=== PATIENT | female | born 1950 | race Two or more races ===

== ENCOUNTER 2017-04-22 12:03 | Emergency (ER) | payer OTHER ==
[2017-04-22 12:13] VITALS: BP 155/75; BMI 29.9
--- NOTE | 2017-04-22 12:48 | ED.ABDFE ---
HPI - Time seen Time seen: 12:35 - PCP Primary Care Physician: LALITA RADER - HPI Comment HPI Comment: PAIN TIMES 3 DAYS. WORSE TONIGHT. REMOTE HISTORY OF TRAUMA. NO FEVER OR DYSURIA - Complaint Chief Complaint Doctors Comments: RIGHT FLANK PAIN. Chief Complaint:: PT C/O HURTING IN HER RIGHT FLANKS THAT STARTED 3 DAYS AGO.. PT FELL AWHILE AGO AND SHE DENIES ANY NEW INJURIES .. - Nurses notes reviewed Nurses Notes Review: Yes - Source History Provided: Patient - Mode of arrival Mode of Arrival: Ambulatory - Timing Onset of Chief Complaint: 04/20/17 Came on: Suddenly - Duration Duration: Days - Severity Severity: Moderate - Quality Quality: Sharp - Modifying Worsening Factors: Nothing Improving Factors: Nothing - Associated signs and symptoms Associated Signs and Symptoms: Nausea PMH - PMH Past Medical History: Yes Past Medical History: Diabetes, Hypertension, Hypothyroidism Past Surgical History: Yes Surgical History: Hysterectomy - Family History History of Family Medical Conditions: Yes Family Medical History: Diabetes Mellitus, Hypertension - Social History Does patient currently use any type of tobacco product: No Have you used tobacco products in the last 12 months: No Type of Tobacco Use: None Does any household member use tobacco: No Alcohol Use: None Do you use any recreational Drugs:: No Lives With: Family Lives Where: Home - infectious screening In the last 2 months have you had wt loss of >10#?: NO Have you had fever, night sweats or hemotysis?: No Have you traveled outside the country in the last 6 months?: No Isolation: Standard ROS - Review of Systems Constitutional: No Symptoms Reported, Weakness. negative: Chills, Fever, Fatigue Eyes: No Symptoms Reported. negative: Eye Pain, Discharge ENTM: No Symptoms Reported. negative: Ear Pain, Nose Discharge, Nose Congestion , Throat Pain Respiratoy: Non-Productive Cough, Short of Breath. negative: Wheezing, Hemoptysis Cardiovascular: No Symptoms Reported Gastrointestinal/Abdominal: Nausea Genitourinary: No Symptoms Reported Neurological: No Symptoms Reported Musculoskeletal: Other (RT FLANK PAIN) Integumentary: No Symptoms Reported Hematologic/Lymphatic: No Symptoms Reported Endocrine: No Symptoms Reported All Other Systems: Reviewed and Negative PE - Vital Signs Vitals: Temperature 98.7 F Pulse Rate 106 Respiratory Rate 18 Blood Pressure 155/75 O2 Sat by Pulse Oximetry 94 - General Limitations: No Limitations General Appearance: Alert - Head Head Exam: Normal Inspection - Eyes Eye exam: Normal Appearance - ENT ENT Exam: Normal External Ear Exam - Neck Neck Exam: Normal Inspection - Chest Chest Inspection: Symmetric Chest Wall Rise - Respiratory Respiratory Exam: Normal Lung Sounds Bilat Respiratory Exam: Bilateral Clear to Auscultation - Cardiovascular Cardiovascular Exam: Regular Rate, Normal Rhythm, Normal Heart Sounds - Abdominal Exam Abdominal Exam: Normal Bowel Sounds, Soft. negative: Tenderness - Rectal Rectal Exam: Deferred - Back Back Exam: (R) CVA Tenderness - Extremeties Extremities Exam: Normal Inspection - External Exam: Female: Deferred : Speculum Exam (Female): Deferred : Bimanual Exam (female): Deferred - Neurologic Neurological Exam: Alert, Oriented X3 - Psychiatric Psychiatric Exam: Normal Affect, Normal Mood - Skin Skin Exam: Normal Color MDM - Differential Diagnosis Differential Diagnosis- Considerations may include:: Angina/OR, Bowel Obstruction, Cholcystitis, Cholelethiasis, Gastritus/PUD, Urinary tract infection, Urolithiasis Course - Treatment Treatment: SEE ORDERS - Education/Counseling Education/Counseling: Patient, Education Educated On: Treatment, Diagnosis, Needs for Follow Up ROR - Labs Reviewed Laboratory Results Reviewed?: Yes Result Diagrams: 04/22/17 12:48 04/22/17 12:48 Laboratory: 04/22/17 13:26 Urine,Clean Catch Urine Culture - Final Klebsiella Pneumoniae WBC 7.0 X10^3/uL (3.6-10.0) 04/22/17 12:48 RBC 4.45 X10^6/uL (3.5-5.4) 04/22/17 12:48 Hgb 12.4 g/dL (12.0-16.0) 04/22/17 12:48 Hct 35.6 % (36.0-47.0) L 04/22/17 12:48 MCV 80.0 fL (80.0-100.0) 04/22/17 12:48 MCH 27.7 pg (27.0-34.0) 04/22/17 12:48 MCHC 34.7 g/dL (33.0-35.0) 04/22/17 12:48 RDW 12.9 % (11.6-16.5) 04/22/17 12:48 Plt Count 315 X10^3/uL (150.0-450.0) 04/22/17 12:48 MPV 7.5 fL (7.4-11.0) 04/22/17 12:48 Neut % 74.0 % (42.0-75.0) 04/22/17 12:48 Lymph % 14.7 % (21.0-51.0) L 04/22/17 12:48 Custer % 9.2 % (0.0-13.0) 04/22/17 12:48 Eos % 1.1 % (0.9-2.9) 04/22/17 12:48 Baso % 1.0 % (0.2-1.0) 04/22/17 12:48 Neut # 5.2 x10^3/uL (2.2-4.8) H 04/22/17 12:48 Lymph # 1.0 X10^3/uL (1.3-2.9) L 04/22/17 12:48 Custer # 0.6 x10^3/uL (0.3-0.8) 04/22/17 12:48 Eos # 0.1 x10^3/uL (0.0-0.2) 04/22/17 12:48 Baso # 0.1 X10^3/uL (0.0-0.1) 04/22/17 12:48 Absolute Nucleated RBC 0.1 /100WBC 04/22/17 12:48 Sodium 138 mmol/L (136-145) 04/22/17 12:48 Corrected Sodium 143 mmol/L (136-145) 04/22/17 12:48 Potassium 4.1 mmol/L (3.5-5.1) 04/22/17 12:48 Chloride 102 mmol/L (98-107) 04/22/17 12:48 Carbon Dioxide 29.9 mmol/L (21-32) 04/22/17 12:48 BUN 26 mg/dL (7-18) H 04/22/17 12:48 Creatinine 1.25 mg/dL (0.55-1.02) H 04/22/17 12:48 Est GFR (MDRD) Af Amer 55 (>60) L 04/22/17 12:48 Est GFR (MDRD) Non-Af 46 (>60) L 04/22/17 12:48 Glucose 313 mg/dL (65-99) H 04/22/17 12:48 Calcium 10.2 mg/dL (8.5-10.1) H 04/22/17 12:48 Corrected Calcium 10.8 mg/dL (8.5-10.1) H 04/22/17 12:48 Total Bilirubin 0.50 mg/dL (0.2-1.0) 04/22/17 12:48 AST 28 Units/L (15-37) 04/22/17 12:48 ALT 67 Units/L (12-78) 04/22/17 12:48 Alkaline Phosphatase 268 Units/L (46-116) H 04/22/17 12:48 Creatine Kinase 19 Units/L (26-192) L 04/22/17 12:48 CK-MB (CK-2) < 1.0 ng/mL (0-4.0) 04/22/17 12:48 CK/CKMB % Calc 5.3 % (<4) 04/22/17 12:48 Troponin I < 0.02 ng/mL (0-1.5) 04/22/17 12:48 B-Natriuretic Peptide 60.8 pg/mL (0-79) 04/22/17 12:48 Total Protein 8.1 g/dL (6.4-8.2) 04/22/17 12:48 Albumin 3.2 g/dL (3.4-5.0) L 04/22/17 12:48 Globulin 4.9 g/dL (2.5-4.5) H 04/22/17 12:48 Albumin/Globulin Ratio 0.7 Ratio (1.1-2.1) L 04/22/17 12:48 Amylase 46 Units/L (25-115) 04/22/17 12:48 Lipase 224 Units/L (73-393) 04/22/17 12:48 Specimen Type Clean catch urine 04/22/17 13:26 Urine Color Yellow (YELLOW) 04/22/17 13:26 Urine Appearance Cloudy (CLEAR) 04/22/17 13:26 Urine pH 5.0 (5.0 - 8.0) 04/22/17 13:26 Ur Specific Clyman 1.015 (1.000-1.030) 04/22/17 13:26 Urine Protein 3+ (NEGATIVE) 04/22/17 13:26 Urine Glucose (UA) 3+ (NEGATIVE) 04/22/17 13:26 Urine Ketones Negative (NEGATIVE) 04/22/17 13:26 Urine Occult Blood 5+ (NEGATIVE) 04/22/17 13:26 Urine Nitrite Positive (NEGATIVE) 04/22/17 13:26 Urine Bilirubin Negative (NEGATIVE) 04/22/17 13:26 Urine Urobilinogen 1+ (NORMAL) 04/22/17 13:26 Ur Leukocyte Esterase 3+ (NEGATIVE) 04/22/17 13:26 Urine RBC Tntc /HPF (NEGATIVE) 04/22/17 13:26 Urine WBC 35 - 50 /HPF (NEGATIVE) 04/22/17 13:26 Ur Squamous Epith Cells Few /HPF (NEGATIVE) 04/22/17 13:26 Ur Renal Epithelial Cell Rare /HPF (NEGATIVE) 04/22/17 13:26 Amorphous Sediment 1+ /HPF (NEGATIVE) 04/22/17 13:26 Urine Bacteria 3+ /HPF (NEGATIVE) 04/22/17 13:26 Hyaline Casts Rare /LPF (NEGATIVE) 04/22/17 13:26 Urine Mucus Moderate /HPF (NEGATIVE) 04/22/17 13:26 Ur Culture Indicated? Yes/culture set up 04/22/17 13:26 - XRAY XRAY Interpreted by: Radiologist XRAY Findings: REPORT DISCUSS WITH PATIENT. - EKG Rhythm: NSR (EKG NOTED) - Diagnosis Discharge Problem: Rt flank pain, Pyelonephritis Abdominal pain Qualifiers: Abdominal location: right lower quadrant Qualified Code(s): R10.31 - Right lower quadrant pain - Discharge Plan Disposition: 01 HOME, SELF-CARE Condition: Stable Prescriptions: Acetaminophen with Codeine [Tylenol/Codeine #3 300-30 mg] 1 tab PO Q8H PRN #15 tab PRN Reason: Pain Ketorolac Tromethamine [Toradol Tab] 10 mg PO Q8H PRN #12 tab PRN Reason: Pain Levofloxacin [LEVAQUIN TAB 500 MG *] 500 mg PO DAILY #7 tab - Follow ups/Referrals Follow ups/Referrals: [facility],None [Primary Care Provider] - 3 days - Instructions Instructions: Pyelonephritis, Adult, Orso-se-Fudp, Abdominal Pain, Adult, Easy- to-Read Additional Instructions: RETURN TO ED IF WORSE.
[2017-04-22 12:51] LABS: BASOPHILS # (AUTO) 0.1 X10^3/uL (0.0-0.1); EOSINOPHILS # (AUTO) 0.1 x10^3/uL (0.0-0.2); EOSINOPHILS % (AUTO) 1.1 % (0.9-2.9); HEMATOCRIT 35.6 % (36.0-47.0); HEMOGLOBIN 12.4 g/dL (12.0-16.0); LYMPHOCYTES % (AUTO) 14.7 % (21.0-51.0); MEAN CORPUSCULAR HEMOGLOBIN 27.7 pg (27.0-34.0); MEAN CORPUSCULAR HGB CONC 34.7 g/dL (33.0-35.0); MEAN PLATELET VOLUME 7.5 fL (7.4-11.0); MONOCYTES # (AUTO) 0.6 x10^3/uL (0.3-0.8); MONOCYTES % (AUTO) 9.2 % (0.0-13.0); NEUTROPHILS # (AUTO) 5.2 x10^3/uL (2.2-4.8); PLATELET COUNT 315 X10^3/uL (150.0-450.0); RED BLOOD COUNT 4.45 X10^6/uL (3.5-5.4); RED CELL DISTRIBUTION WIDTH 12.9 % (11.6-16.5)
[2017-04-22 13:16] LABS: B-TYPE NATRIURETIC PEPTIDE 60.8 pg/mL (0-79)
[2017-04-22 13:18] LABS: ALANINE AMINOTRANSFERASE 67 Units/L (12-78); ALBUMIN 3.2 g/dL (3.4-5.0); ALKALINE PHOSPHATASE 268 Units/L (46-116); AMYLASE 46 Units/L (25-115); ASPARTATE AMINO TRANSFERASE 28 Units/L (15-37); BLOOD UREA NITROGEN 26 mg/dL (7-18); CALCIUM 10.2 mg/dL (8.5-10.1); CARBON DIOXIDE 29.9 mmol/L (21-32); CHLORIDE 102 mmol/L (98-107); COR CA(FOR HYPOALB) 10.8 mg/dL (8.5-10.1); COR NA(FOR HYPERGLY) 143 mmol/L (136-145); CREATINE KINASE 19 Units/L (26-192); CREATINE KINASE MB < 1.0 ng/mL (0-4.0); CREATININE 1.25 mg/dL (0.55-1.02); LIPASE 224 Units/L (73-393); SODIUM 138 mmol/L (136-145); TOTAL PROTEIN 8.1 g/dL (6.4-8.2); TROPONIN I < 0.02 ng/mL (0-1.5); eGFR BLACK RACES 55 (>60); eGFR NON BLACK RACES 46 (>60)
[2017-04-22 13:19] LABS: CKMB % 5.3 % (<4)
[2017-04-22 13:38] LABS: BILIRUBIN,URINE NEGATIVE (NEGATIVE); BLOOD/HEMOGLOBIN,URINE 5+ (NEGATIVE); GLUCOSE, URINE 3+ (NEGATIVE); KETONES,URINE NEGATIVE (NEGATIVE); LEUKOCYTE ESTERASE ,URINE 3+ (NEGATIVE); NITRITES,URINE POSITIVE (NEGATIVE); PROTEIN,URINE 3+ (NEGATIVE); UROBILINOGEN,URINE 1+ (NORMAL)
--- NOTE | 2017-04-22 13:40 | RAD ---
HISTORY: Chest pain. Study: Single-view chest. Comparison: None. Findings: The trachea is midline. The cardiac silhouette is within normal limits. The lungs are clear without focal infiltrate or effusion. The bony thorax is unremarkable. IMPRESSION: No acute cardiopulmonary disease. Reported By:
[2017-04-22 13:59] LABS: APPEARANCE,URINE CLOUDY (CLEAR); COLOR,URINE YELLOW (YELLOW)
[2017-04-22 14:01] LABS: RBC,URINE TNTC /HPF (NEGATIVE)
[2017-04-22 14:02] LABS: AMORPHOUS SEDIMENT,UR 1+ /HPF (NEGATIVE); BACTERIA,URINE 3+ /HPF (NEGATIVE); HYALINE CASTS, URINE RARE /LPF (NEGATIVE); MUCUS,URINE MODERATE /HPF (NEGATIVE); RENAL EPITHELIAL CELLS,URINE RARE /HPF (NEGATIVE); SQUAMOUS EPITHELIAL CELL,UR FEW /HPF (NEGATIVE)
--- NOTE | 2017-04-22 14:08 | RAD ---
HISTORY: Right-sided rib pain status post fall. Study: Four views of the right ribs. Comparison: Chest x-ray dated same day. Findings: The trachea is midline. The cardiac silhouette is unremarkable. The lungs are clear without focal i nfiltrate or effusion. The bony thorax is unremarkable. No acute cortical disruption or angulation of the bony left or right hemithorax can be identified. N o underlying pneumothorax is seen. IMPRESSION: 1. No acute cardiopulmonary disease. 2. No evidence for acute rib fracture can be identified. Reported By:
--- NOTE | 2017-04-22 14:29 | CT ---
CT ABDOMEN AND PELVIS WITHOUT CONTRAST CLINICAL HISTORY: 66-year-old female with right flank pain. COMPARISON: None. TECHNIQUE: Multiple contiguous computed tomographic axial images of the abdomen and pelvis were obtai everardo without the use of oral or intravenous contrast. Images were reformatted in the coronal and sagit adeel planes. FINDINGS: The lung bases demonstrate no evidence of focal air-space opacification, pleural effusion, pneumothor ax, or suspicious pulmonary nodules. The imaged inferior mediastinum and heart are normal in appeara nce without evidence of pericardial effusion. Hepatomegaly without hepatic steatosis, focal mass lesion or biliary ductal dilatation. Borderline sp lenomegaly with a 1 cm splenule along the posteroinferior spleen. Pancreas and gallbladder are unrema rkable. The adrenal glands are unremarkable for study without contrast. Significant left renal atrophy with c ompensatory hyper trophic appearance of the right kidney. There are no nephroureteral stones or perin ephric fluid collections. There is no evidence of hydroureteronephrosis and the ureters run in an anne bstructed course to a moderately distended urinary bladder. Status post hysterectomy. Vaginal cuff and adnexa are unremarkable. Multiple pelvic phleboliths. The appendix is normal in appearance. The bowel is without obstruction or inflammation and there is no free fluid or free air within the peritoneal cavity. Diverticulosis without CT evidence of diverti culitis There are no pathologically enlarged lymph nodes in the abdomen or pelvis. Moderate calcific atherosclerotic disease of the aorta and its branches. Soft tissues are normal. The osseous structures are intact without fracture or malalignment. IMPRESSION: 1. No acute intra-abdominal or intrapelvic process. 2. Significant atrophy of the left kidney with compensatory hypertrophy of the right kidney, broad di fferential diagnosis, correlate clinically. 3. Normal appendix. 4. Status post hysterectomy. Reported By:
[2017-04-22] MEDS ORDERED: ROCEPHIN VIAL 1 GM IM ONE (14:52)
[2017-04-22] MEDS ORDERED: TORADOL 60 MG VIAL IM ONE (14:52)
[2017-04-22] MEDS ORDERED: ROCEPHIN VIAL 1 GM ONE (15:00)
[2017-04-22] MEDS ORDERED: XYLOCAINE 1 % (PLAIN) ONE (15:00)
[2017-04-22] MEDS ORDERED: TORADOL 60 MG VIAL ONE (15:19)
== END 2017-04-22 15:43 | disposition home or self-care (01) ==
LOC: ER 12:21
DX: N12 Tubulo-interstitial nephritis, not specified as acute or chronic (principal); R10.31 Right lower quadrant pain; B96.1 Klebsiella pneumoniae [K. pneumoniae] as the cause of diseases classified elsewhere
CPT/HCPCS: 36415; 71010; 71111; 74176; 80053; 81001; 82150; 82550; 82553; 83690; 83880; 84484; 85025; 87086; 87088; 87186; 93005; 93010; 96372; 99282; 99283; J0696; J1885; J2001